=== PATIENT | female | born 1965 | race Hispanic/Latino ===

== ENCOUNTER 2017-05-18 12:41 | Observation (INO) | payer OTHER ==
[2017-05-18 13:36] LABS: #Lymphocytes 1.6 thou/uL (1.20-3.40); #Monocytes 0.4 thou/uL (0.11-0.59); #Neutrophils 3.8 thou/uL (1.40-6.50); %Basophils 0.7 % (0.0-1.0); %Eosinophils 0.5 % (0.0-10.0); %Lymphocytes 27.2 % (21.0-51.0); %Monocytes 6.3 % (0.0-10.0); %Neutrophils 65.3 % (42.0-75.0); Mean Corpuscular HGB CONC 34.2 g/dL (32.0-36.0); Mean Corpuscular Volume 84.9 fl (81.0-99.0); Mean Platelet Volume 8.7 fL (7.4-10.4); Platelet Count 275 thou/uL (130-400); RBC Distribution Width 12.1 % (11.5-14.5); Red Blood Cell (RBC) Count 4.48 mill/uL (4.20-5.40); White Blood Cell (WBC) Count 5.9 thou/uL (4.8-10.8)
[2017-05-18] MEDS ORDERED: Ondansetron HCl/PF 4 MG/2 ML Vial ONE (13:44)
[2017-05-18] MEDS ORDERED: Meclizine HCl 25 MG TAB ONE (13:44)
[2017-05-18 13:48] LABS: Anion Gap 14 mmol/L (10-20); BUN (Urea Nitrogen) 10 mg/dL (7.0-18.7); Calc. Creatinine Clearance 0 mL/min (70-130); Calcium 9.4 mg/dL (7.8-10.44); Carbon Dioxide 25 mmol/L (22-29); Chloride 106 mmol/L (98-107); Estimated GFR-MDRD Greater than 90; Glucose 115 mg/dL (70-105); Potassium 3.6 mmol/L (3.5-5.1); Sodium 141 mmol/L (136-145)
[2017-05-18 13:52] LABS: CKMB 0.8 ng/mL (0-6.6); Troponin I Less than 0.010 ng/mL (< 0.028)
--- NOTE | 2017-05-18 14:18 | RAD ---
PORTABLE CHEST 1 VIEW: Date: 05/18/17 Time: 1349 hours HISTORY: Headache. Dizziness. FINDINGS: The heart size is normal. The lungs are expanded without focal areas of consolidation, pneumothorax, or pleural effusions. IMPRESSION: No radiographic evidence of acute cardiopulmonary process. POS: OFF
[2017-05-18] MEDS ORDERED: Lorazepam 2 MG/ML VIAL ONE (14:51)
--- NOTE | 2017-05-18 15:36 | CT ---
CT HEAD WITHOUT CONTRAST: Technique: Multiple axial tomograms were obtained through the head without IV enhancement. History: Headache. Dizziness. FINDINGS: Ventricles have normal size and position. No mass, infract, or hemorrhage seen. Sinuses and mastoids are aerated. IMPRESSION: No evidence of acute process. POS: [facility]
[2017-05-18 15:41] LABS: Bilirubin Negative (Negative); Blood, Urine Negative (Negative); Clarity Clear (Clear); Glucose, Urine (Dipstick) Negative (Negative); Leukocyte Negative (Negative); Nitrite Negative (Negative); Protein, Urine (Dipstick) 30 mg/dL (Neg-Trace); Specific Gravity, Urine 1.015 (1.005-1.030); Urobilinogen 0.2 mg/dL (0.2-1.0); pH, Urine 7.5 (5.0-9.0)
[2017-05-18 15:42] LABS: Bacteria/HPF Rare-Few HPF (None Seen); RBC/HPF None Seen HPF (0-3); WBC/HPF None Seen HPF (0-3)
[2017-05-18] MEDS ORDERED: Aspirin 325 MG TAB ONE (18:19)
[2017-05-18] MEDS ORDERED: Ondansetron ODT 4 MG TAB SL PRN (19:52)
[2017-05-18] MEDS ORDERED: Acetaminophen 325 MG TAB PO PRN ×2 (19:52→22:15)
[2017-05-18] MEDS ORDERED: Ondansetron HCl/PF 4 MG/2 ML Vial IVP PRN ×2 (19:52→22:15)
[2017-05-18] MEDS ORDERED: Ondansetron ODT 4 MG TAB PO PRN (22:15)
[2017-05-18] MEDS ORDERED: hydrALAZINE 20 MG/ML VIAL SLOW IVP PRN (22:15)
--- NOTE | 2017-05-18 22:28 | PDOC.FPRHP ---
- History of Present Illness Chief Complaint: dizziness, nausea, vomiting, headache History of Present Illness: 51 yo F with PMH of dyslipidemia and trigeminal neuralgia presents with 4 day h/ o headache, dizziness, nausea and vomiting which started when the pt woke up in the morning on Thursday. She reports the symptoms began to subside, but later increased on Thursday and they eventually decided to go to the clinic on Thursday. After she presented to the clinic she was later transferred to the ER for concern of post circ stroke. She denies associated cp, palpitations, sob, diarrhea constipation, abd pain, fever, chills, sweats. Neither her nor family members reports any slurred speech or focal neurological deficit. Additionally, pt denies dysphagia and dysarthria. She does report difficulty ambulating and feeling weak during the same time period. In the ED the initial brain ct was negative and lab results were wnl. and EKG showed NSR. ED Course: aspirin ativan meclizine zofran - Allergies/Adverse Reactions Allergies Allergy/AdvReac Type Severity Reaction Status Date / Time No Known Drug Allergies Allergy Verified 05/18/17 22:11 - Home Medications Medication Instructions Recorded Confirmed Type Acetaminophen [Tylenol Arthritis] 650 mg PO 05/18/17 History - History PMHx: Dyslipidemia, trigeminal neuralgia PSHx: cholecystectomy, , lipoma removal FHx: Maternal HTN Social: Non-smoker, non-drinker, denies drugs - Review of Systems General: denies: fever/chills, weight/appetite/sleep changes, fatigue Eyes: reports: other (dizziness). denies: eye pain, vision changes ENT: denies: nasal congestion, rhinorrhea Respiratory: denies: cough, congestion, shortness of breath Cardiovascular: denies: chest pain, palpitation Gastrointestinal: reports: nausea, vomiting. denies: diarrhea, constipation, abdominal pain Genitourinary: denies: dysuria, polyuria Skin: denies: rashes, lesions Musculoskeletal: denies: tenderness, swelling, arthritis/arthralgias Neurological: reports: weakness, other (headache, dizziness). denies: numbness , syncope - Vital signs BP: 110/60 HR: 82 RR: 19 Tmax: 98.6 Pox: 98% on RA Wt: 75Kg - Physical Exam Constitutional: NAD, awake, alert and oriented, other (Laying comfortably in bed , minimal head movement) HEENT: normocephalic and atraumatic, PERRLA, EOMI, conjunctiva clear, grossly normal vision, grossly normal hearing Neck: supple, FROM, no LAD, no JVD Heart: RRR, normal S1/S2, no murmurs/rubs/gallops, pulses present Lungs: CTAB, no respiratory distress, good air movement, no wheezing Abdomen: soft, non-tender, bowel sounds present, no masses/distention Musculoskeletal: normal structure, normal tone Neurological: no focal deficit, CN II-XII intact, normal sensation, other (Head impulse: Negative Nystagmus: Unidirectional, horizontal Test of Skew: Negative) Skin: no rash/lesions, good turgor, capillary refill <2 seconds Heme/Lymphatic: no unusual bruising or bleeding, no petechia Psychiatric: normal mood and affect FMR H&P: Results - Labs Result Diagrams: 05/18/17 13:30 05/18/17 13:30 Lab results: WBC 5.9 thou/uL (4.8-10.8) 05/18/17 13:30 Hgb 13.0 g/dL (12.0-16.0) 05/18/17 13:30 Hct 38.0 % (36.0-47.0) 05/18/17 13:30 MCV 84.9 fl (81.0-99.0) 05/18/17 13:30 Plt Count 275 thou/uL (130-400) 05/18/17 13:30 Neutrophils % 65.3 % (42.0-75.0) 05/18/17 13:30 Sodium 141 mmol/L (136-145) 05/18/17 13:30 Potassium 3.6 mmol/L (3.5-5.1) 05/18/17 13:30 Chloride 106 mmol/L (98-107) 05/18/17 13:30 Carbon Dioxide 25 mmol/L (22-29) 05/18/17 13:30 BUN 10 mg/dL (7.0-18.7) 05/18/17 13:30 Creatinine 0.64 mg/dL (0.6-1.1) 05/18/17 13:30 Glucose 115 mg/dL (70-105) H 03/05/18 13:30 Calcium 9.4 mg/dL (7.8-10.44) 05/18/17 13:30 CK-MB (CK-2) 0.8 ng/mL (0-6.6) 05/18/17 13:30 Urine Ketones Negative mg/dL (Negative) 05/18/17 14:44 Urine Blood Negative (Negative) 05/18/17 14:44 Urine Nitrite Negative (Negative) 05/18/17 14:44 Ur Leukocyte Esterase Negative (Negative) 05/18/17 14:44 Urine RBC None Seen HPF (0-3) 05/18/17 14:44 Urine WBC None Seen HPF (0-3) 05/18/17 14:44 Ur Squamous Epith Cells 4-6 HPF (0-3) H 05/18/17 14:44 Urine Bacteria Rare-Few HPF (None Seen) 05/18/17 14:44 - EKG Interpretation EKG: NSR rate 61. - Radiology Interpretation Chest x-ray Status: report reviewed by me (SYD) CT scan - head Status: report reviewed by me (SYD) FMR H&P: A/P - Problem List (1) Cerebellar stroke syndrome Current Visit: No Status: Suspected Code(s): G46.4 - CEREBELLAR STROKE SYNDROME (2) Dyslipidemia Current Visit: No Status: Acute Code(s): E78.5 - HYPERLIPIDEMIA, UNSPECIFIED - Plan 1) Cerebellar stroke syndrome, suspected - admit stroke OBS - Pts exam unequivocal, but given positive findings on head impulse, lack of tinnitus or localizing peripheral findings there is concern for posterior circ stroke vs peripheral vertigo vs complex migraine - Will order MRI w & w/o for am, f/u accordingly - am FLP - aspirin 81mg daily - statin 40mg qhs - NS @ 100mls/hr - Negative head impulse, horizontal unidirectional nystagmus and negative test of skew - No other cerebellar findings. Normal heel to gillespie and rapid alternating movements. - Symptom control with zofran prn 2) Dyslipidemia: per outside records, not currently on statin - will check am FLP and start on high intensity statin qhs Disposition/LOS: stable. </= 2 days. Symptomatic meds will be provided. FMR H&P: Upper Level - Pertinent history 51yo HF with PMHx of LT trigeminal neuralgia and dyslipidemia who was transferred from [facility] ED for persistent dizziness. Reports dizziness started on Thursday and progressively worsened over the weekend. Describes it as the room spinning and worsened with moving her head, sitting up and essentially any type of movement. Tried to make an appt with PCP on Thursday but there was no availabilities so she presented to ED. Associated with nausea and vomiting as well that has worsened since Thursday. Endorses BL temporal BARRERA last night, but resolved with Tylenol. Denies any balance difficulty, ataxia, fevers, diarrhea. In the ED, patient was given ASA, meclizine 25mg PO, 2L NS bolus, Ativan 1mg, Zofran 4mg iv - Pertinent findings Gen: NAD HEENT: PERRLA Heart: S1 S2, RRR Lungs: CTAB Abd: soft, nt/nd/bs+ Neuro: CN2-12 intact; normal FTNF, 5/5 BL UE strength, 5/5 BL LE strength, (-) head impulse, (+) horizontal nystagmus, (-) test of skew - Plan Date/Time: 05/18/172224 IAngelic, have evaluated this patient and agree with findings/ plan as outlined by agriculture intern resident. Pertinent changes/additions are listed here. 1. Vertigo: likely 2/2 BPPV [address] on obs to stroke. HINTS exam showing (-) head impulse indicative of central vertigo, but horizontal nystagmus and (-) test of skew indicative of peripheral etiology. CT head (-). Obtain MRI in AM. Obtain FLP and TSH. Cont ASA. 2. HLD: hx of HLD but not on any meds. Obtain FLP. 3. LT trigeminal neuralgia: previously on carbamazepine for symptoms, but not currently taking med. 4. 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 Looking over clinic records, referred to neurosurgery but never followed up. 5. PPx: SCDs 6. Diet: HH 7. Code Status: Full
[2017-05-19] MEDS: Sodium Chloride 0.9% 1,000 ML IV SCH ×2 (00:23→07:15)
[2017-05-19 05:05] LABS: Anion Gap 11 mmol/L (10-20); BUN (Urea Nitrogen) 12 mg/dL (7.0-18.7); Calc. Creatinine Clearance 118 mL/min (70-130); Carbon Dioxide 23 mmol/L (22-29); Cardiac Risk 4.8 (Less than 4.5); Chloride 110 mmol/L (98-107); Cholesterol 149 mg/dl (< 200 Desired); Estimated GFR-MDRD Greater than 90; Glucose 119 mg/dL (70-105); HDL Cholesterol 31 mg/dL (>60 Neg Risk); LDL Cholesterol, Calculated 91 mg/dL; Potassium 3.8 mmol/L (3.5-5.1); Sodium 140 mmol/L (136-145); Triglycerides 137 mg/dL (Less than 150)
[2017-05-19 05:24] LABS: #Eosinphils 0.1 thou/uL (0.0-0.7); #Monocytes 0.5 thou/uL (0.11-0.59); #Neutrophils 2.9 thou/uL (1.40-6.50); %Basophils 0.6 % (0.0-1.0); %Eosinophils 1.8 % (0.0-10.0); %Lymphocytes 37.1 % (21.0-51.0); %Monocytes 8.1 % (0.0-10.0); %Neutrophils 52.4 % (42.0-75.0); Hemoglobin 12.2 g/dL (12.0-16.0); Mean Corpuscular HGB CONC 33.2 g/dL (32.0-36.0); Mean Corpuscular Hemoglobin 29.8 pg (27.0-31.0); Mean Corpuscular Volume 89.7 fl (81.0-99.0); Mean Platelet Volume 7.7 fL (7.4-10.4); Platelet Count 243 thou/uL (130-400); RBC Distribution Width 12.6 % (11.5-14.5); Red Blood Cell (RBC) Count 4.09 mill/uL (4.20-5.40); White Blood Cell (WBC) Count 5.5 thou/uL (4.8-10.8)
--- NOTE | 2017-05-19 08:24 | PDOC.FM ---
- Subjective Subjective: This morning patient reports that she is continuing to feels dizzy at times when she walks. She states she is not having headache at the time of my exam but occasionally feels pain starting at the base of the skull wrapping around to the front and feels like pressure. 3/10 at times last night. She states she ate supper without experiencing nausea or vomiting. - Objective Vital Signs & Weight: Vital Signs (12 hours) Temp Pulse Resp BP Pulse Ox 05/19/17 07:15 98.4 F 63 14 97/54 L 97 05/19/17 03:46 98.3 F 85 16 98/58 L 97 Weight Weight 75.841 kg I&O: 05/18/17 05/19/17 05/20/17 06:59 06:59 06:59 Intake Total 558 Balance 558 Result Diagrams: 05/19/17 03:59 05/19/17 03:59 <Jeremiah Hanson - Last Filed: 05/19/17 12:49> - Objective Vital Signs & Weight: Vital Signs (12 hours) Temp Pulse Resp BP BP BP BP 05/19/17 15:30 98.1 F 57 L 16 99/55 L 05/19/17 12:46 97.7 F 65 16 108/62 05/19/17 10:35 94/52 L 96/54 L 103/63 05/19/17 07:15 98.4 F 63 14 97/54 L Pulse Ox 05/19/17 15:30 95 05/19/17 12:46 96 05/19/17 10:35 05/19/17 07:15 97 Weight Admit Weight 75.75 kg Weight 75.841 kg I&O: 05/18/17 05/19/17 05/20/17 06:59 06:59 06:59 Intake Total 558 Balance 558 Result Diagrams: 05/19/17 03:59 05/19/17 03:59 <Zac Red - Last Filed: 05/19/17 16:45> Phys Exam - Physical Examination Constitutional: NAD HEENT: PERRLA, moist MMs Neck: no nodes, full ROM Respiratory: no wheezing, clear to auscultation bilateral Cardiovascular: RRR, no significant murmur Gastrointestinal: soft, non-tender, no distention, positive bowel sounds Musculoskeletal: no edema, pulses present Neurological: non-focal, moves all 4 limbs Lymphatic: no nodes Skin: no rash, normal turgor, cap refill <2 seconds <Jeremiah Hanson - Last Filed: 05/19/17 12:49> Dx/Plan (1) Vertigo Code(s): R42 - DIZZINESS AND GIDDINESS Status: Acute (2) Dyslipidemia Code(s): E78.5 - HYPERLIPIDEMIA, UNSPECIFIED Status: Acute (3) Cerebellar stroke syndrome Code(s): G46.4 - CEREBELLAR STROKE SYNDROME Status: Suspected - Plan Plan: # Vertigo - CT head negative in ED - must r/o CVA, MRI w/ w/o contrast today - Abnormal MRI in 2015 showing abnormal AICA vascular loop, referred to neurosurgery, no record followed-up - BPs on the low side overnight, check orthostatic - HINTS exam enequicoval: (-) head impulse indicative of central vertigo, but horizontal nystagmus and (-) test of skew indicative of peripheral etiology - ASA # HLD - Atorvastin 40 - FLP WNL # Hx of Trigeminal Neuralgia - not currently complaining of these symptoms - not on medications # Code - full #PPx - SCDs <Jeremiah Hanson - Last Filed: 05/19/17 12:49> Attending Addendum - Attending Addendum Date/Time: 05/19/17 3247 I personally evaluated the patient and discussed the management with Dr. Hanson. I agree with the History, Examination, Assessment and Plan documented above with any addition or exceptions noted below. Evlaution for CVA ongoing. <Zac Red - Last Filed: 05/19/17 16:45>
[2017-05-19] MEDS: Famotidine 20 MG TAB PO SCH ×2 (08:54→20:30)
[2017-05-19] MEDS: Aspirin 81 mg Enteric Coated Tablet PO SCH (08:54)
[2017-05-19] MEDS ORDERED: FLU VACC QS2017-18 36 mo. & older 0.5 ML SYRINGE IM ONE (09:00)
[2017-05-19 13:03] VITALS: BMI 31.6
--- NOTE | 2017-05-19 20:03 | MRI ---
MRI OF BRAIN WITH AND WITHOUT CONTRAST: 05/19/17 HISTORY: Vertigo, headache, nausea and vomiting. COMPARISON: CT brain prior day. FINDINGS: Diffusion weighted omaging sequences show no abnormal areas of diffusion restriction. This is confirm ed on the ADC map. On the susceptibility weighted imaging sequence, no abnormal areas of hemorrhage. There does appear to be a AICA vascular loop abutting the left nerve entry zone of cranial nerve V. N o abnormal intra-axial or extra-axial mass-like enhancement. The dural venous sinuses are patent. Mar row signal of the clivus was normal. IMPRESSION: 1. No acute intracranial abnormality. 2. Vascular loop of the left AICA abutting cranial nerve V as seen on the prior examination can be seen with trigeminal neuralgia. POS: [facility]
[2017-05-19] MEDS ORDERED: Atorvastatin Calcium 40 MG TAB PO SCH (21:00)
[2017-05-20] MEDS: Sodium Chloride 0.9% 1,000 ML IV SCH ×2 (05:40→05:41)
[2017-05-20] MEDS ORDERED: carBAMazepine 200 MG TAB PO SCH ×3 (08:47→17:00)
[2017-05-20] MEDS: Famotidine 20 MG TAB PO SCH (09:00)
[2017-05-20] MEDS: Aspirin 81 mg Enteric Coated Tablet PO SCH (09:01)
--- NOTE | 2017-05-20 09:30 | PDOC.FM ---
- Subjective Subjective: This morning the patient states that she is still having dizziness. She denies nausea or vomiting. Tolerating PO intake well. Able to ambulate to the restroom without difficulty. - Objective Vital Signs & Weight: Vital Signs (12 hours) Temp Pulse Resp BP Pulse Ox 05/20/17 07:24 97.6 F 62 16 117/63 97 05/20/17 04:00 97.9 F 63 20 98/55 L 97 Weight Admit Weight 75.75 kg Weight 77.247 kg I&O: 05/19/17 05/20/17 05/21/17 06:59 06:59 06:59 Intake Total 558 1650 Balance 558 1650 Result Diagrams: 05/19/17 03:59 05/19/17 03:59 <Jeremiah Hanson - Last Filed: 05/20/17 09:28> - Objective Vital Signs & Weight: Vital Signs (12 hours) Temp Pulse Resp BP Pulse Ox 05/20/17 11:55 98.2 F 78 16 133/72 97 05/20/17 08:00 97.6 F 62 16 05/20/17 07:24 97.6 F 62 16 117/63 97 Weight Admit Weight 75.75 kg Weight 77.247 kg I&O: 05/19/17 05/20/17 05/21/17 06:59 06:59 06:59 Intake Total 558 1650 Balance 558 1650 Result Diagrams: 05/19/17 03:59 05/19/17 03:59 <Zac Red - Last Filed: 05/20/17 17:11> Phys Exam - Physical Examination Constitutional: NAD HEENT: PERRLA, moist MMs Neck: no nodes, full ROM Respiratory: no wheezing, clear to auscultation bilateral Cardiovascular: RRR, no significant murmur Gastrointestinal: soft, non-tender, no distention, positive bowel sounds Musculoskeletal: no edema, pulses present Neurological: non-focal, moves all 4 limbs yasmin-halpike negative Psychiatric: normal affect, A&O x 3 Skin: no rash, cap refill <2 seconds <Jeremiah Hanson - Last Filed: 05/20/17 09:28> Dx/Plan (1) Vertigo Code(s): R42 - DIZZINESS AND GIDDINESS Status: Acute (2) Dyslipidemia Code(s): E78.5 - HYPERLIPIDEMIA, UNSPECIFIED Status: Acute (3) Cerebellar stroke syndrome Code(s): G46.4 - CEREBELLAR STROKE SYNDROME Status: Suspected - Plan Plan: # Vertigo - CT head negative in ED - MRI r/o stroke, shows same abnormality as below which could contribute to trigeminal neuralgia - Abnormal MRI in 2015 showing abnormal AICA vascular loop - BPs on the low side overnight - orthostatic WNL - HINTS exam enequicoval: (-) head impulse indicative of central vertigo, but horizontal nystagmus and (-) test of skew indicative of peripheral etiology - ASA # HLD - Atorvastin 40 - FLP WNL # Hx of Trigeminal Neuralgia - patient does not remember this diagnosis - will start carbamazepime # Code - full #PPx - SCDs dispo: dc today <Jeremiah Hanson - Last Filed: 05/20/17 09:28> Attending Addendum - Attending Addendum Date/Time: 05/20/17 1711 I personally evaluated the patient and discussed the management with Dr. Hanson. I agree with the History, Examination, Assessment and Plan documented above with any addition or exceptions noted below. Stable for discharge. <Zac Red - Last Filed: 05/20/17 17:11>
[2017-05-20 13:33] VITALS: BP 133/72; TEMP 98.2
--- NOTE | 2017-05-20 20:03 | DIS-2 ---
DATE OF ADMISSION: 05/18/2017 DATE OF DISCHARGE: 05/20/2017 RESIDENT: Jeremiah Hanson M.D. ADMITTING ATTENDING: Luz Maria Lawler M.D. DISCHARGE ATTENDING: Zac Red M.D. CONSULTATIONS: None. PROCEDURE: Brain MRI shows old left AICA vascular loop abutting cranial nerve 5 , which could be associated with trigeminal neuralgia. This is known from 2014. PRIMARY DIAGNOSIS: Trigeminal neuralgia. SECONDARY DIAGNOSES: Vertigo, hyperlipidemia, cerebrovascular accident, rule out. DISCHARGE MEDICATIONS: Carbamazepine 200 mg p.o. b.i.d., rosuvastatin 10 mg daily, and aspirin 81 mg. DISCONTINUED MEDICATIONS: None. HISTORY OF PRESENT ILLNESS AND HOSPITAL COURSE: This is a 51-year-old female with past medical history of dyslipidemia, trigeminal neuralgia presented to the ED with 4-day history of headache, dizziness, nausea, and vomiting which started when the patient woke up on 05/15/2017. She says that the symptoms proceeded through the weekend and she decided to go into the clinic on Thursday. She was transferred to the ED for concern of posterior circulation stroke. In the ED, CT head was found to be negative and she was admitted for stroke rule out. Brain MRI showed the findings as above. The patient's vertigo persisted throughout the hospitalization, but did improve as the hospitalization went on. Brain MRI ruled out CVA or other source needing acute intervention. A [place]-Hallpike maneuver was performed and there was no nystagmus noted. On further discussion with the patient, a shared decision was made to begin the carbamazepine secondary to the history of trigeminal neuralgia and the history including facial pain and follow up closely with PCP for medication adjustment if this does not resolve her vertigo. Differential including Trigeminal Neuralgia, complex migraine, Meniere's disease, and vestibular neuritis. DISPOSITION: Stable. DISCHARGE INSTRUCTIONS: 1. Location: Home. 2. Diet: Regular. 3. Activity: As tolerated. 4. Follow up with PCP, Dr. Dumont in 5 days. LARRY
--- NOTE | 2017-05-23 15:57 | EKG ---
Test Reason : Blood Pressure : / mmHG Vent. Rate : 060 BPM Atrial Rate : 060 BPM P-R Int : 130 ms QRS Dur : 088 ms QT Int : 428 ms P-R-T Axes : 031 020 040 degrees QTc Int : 428 ms Normal sinus rhythm Normal ECG Confirmed by ALYSHA FATIMA, VICKY ([id number]), photographic editor GABRIELE WORLEY ([id number]) on 05/23/2017 3:56:22 PM Referred By: Confirmed By:VICKY ENCARNACION MD
== END 2017-05-20 13:37 | disposition home or self-care (01) ==
LOC: SCSER 12:41 → 2NO 17:25 → INTOOBSV 17:25
PROVIDERS: ADMIT Family Medicine; ATTEND Family Medicine
DX: G50.0 Trigeminal neuralgia (principal); R42 Dizziness and giddiness; E78.5 Hyperlipidemia, unspecified
CPT/HCPCS: 36415; 70450; 70553; 71045; 80048; 80061; 81003; 81015; 82553; 84443; 84484; 85025; 93005; 96360; 96361; 96374; 96375; G0378; J2060; J2405

== ENCOUNTER 2018-03-11 08:00 | Outpatient (CLI) | payer OTHER | END 2018-03-11 08:01 | disposition home or self-care (01) | LOC: BICMAMMO 08:00 | PROVIDERS: ATTEND Student in an Organized Health Care Education/Training Program | DX: Z12.31 Encounter for screening mammogram for malignant neoplasm of breast (principal) | CPT/HCPCS: 77063; 77067 ==

== ENCOUNTER 2019-03-03 10:41 | Outpatient (CLI) | payer OTHER ==
--- NOTE | 2019-03-03 11:09 | MMO ---
Bilateral MAMMO Bilat Screen [facility]. CLINICAL HISTORY: Patient is 53 years old and is seen for screening. The patient has no family history of breast cancer. The patient has no personal history of cancer. VIEWS: The views performed were: bilateral craniocaudal with tomosynthesis and bilateral mediolateral oblique with tomosynthesis. FILMS COMPARED: The present examination has been compared to prior imaging studies performed at 03/11/2018, and at [facility]- on 12/11/2005. This study has been interpreted with the assistance of computer-aided detection. MAMMOGRAM FINDINGS: There are scattered fibroglandular densities. There are no suspicious masses, suspicious calcifications, or new areas of architectural distortion. IMPRESSION: THERE IS NO MAMMOGRAPHIC EVIDENCE OF MALIGNANCY. A ROUTINE FOLLOW-UP MAMMOGRAM IN 1 YEAR IS RECOMMENDED. THE RESULTS OF THIS EXAM WERE SENT TO THE PATIENT. ACR BI-RADS Category 1 - Negative MAMMOGRAPHY NOTE: 1. A negative mammogram report should not delay a biopsy if a dominant of clinically suspicious mass is present. 2. Approximately 10% to 15% of breast cancers are not detected by mammography. 3. Adenosis and dense breasts may obscure an underlying neoplasm. Reported by: MARCO ANTONIO RIVERA MD Electonically Signed: [id number]
== END 2019-03-03 10:42 | disposition home or self-care (01) ==
LOC: BICMAMMO 10:41
PROVIDERS: ATTEND Student in an Organized Health Care Education/Training Program
DX: Z12.31 Encounter for screening mammogram for malignant neoplasm of breast (principal)
CPT/HCPCS: 77063; 77067

== ENCOUNTER 2020-04-03 09:53 | Outpatient (CLI) | payer BC, OTHER ==
--- NOTE | 2020-04-03 10:50 | MMO ---
Bilateral MAMMO Bilat Screen [facility]. CLINICAL HISTORY: Patient is 54 years old and is seen for screening. The patient has no family history of breast cancer. The patient has no personal history of cancer. VIEWS: The views performed were: bilateral craniocaudal with tomosynthesis and bilateral mediolateral oblique with tomosynthesis. FILMS COMPARED: The present examination has been compared to prior imaging studies performed at 06/18/2010, 03/11/2018 and 03/03/2019. This study has been interpreted with the assistance of computer-aided detection. MAMMOGRAM FINDINGS: There are scattered fibroglandular densities. There are no suspicious masses, suspicious calcifications, or new areas of architectural distortion. IMPRESSION: THERE IS NO MAMMOGRAPHIC EVIDENCE OF MALIGNANCY. A ROUTINE FOLLOW-UP MAMMOGRAM IN 1 YEAR IS RECOMMENDED. THE RESULTS OF THIS EXAM WERE SENT TO THE PATIENT. ACR BI-RADS Category 1 - Negative MAMMOGRAPHY NOTE: 1. A negative mammogram report should not delay a biopsy if a dominant of clinically suspicious mass is present. 2. Approximately 10% to 15% of breast cancers are not detected by mammography. 3. Adenosis and dense breasts may obscure an underlying neoplasm. Reported by: MARCO ANTONIO RIVERA MD Electonically Signed: [id number]
== END 2020-04-03 09:54 | disposition home or self-care (01) ==
LOC: BICMAMMO 09:53
PROVIDERS: ATTEND Family Medicine
DX: Z12.31 Encounter for screening mammogram for malignant neoplasm of breast (principal)
CPT/HCPCS: 77063; 77067

== ENCOUNTER 2025-01-06 08:08 | Outpatient (CLI) | payer OTHER | END 2025-01-06 08:09 | disposition home or self-care (01) | LOC: BICMAMMO 08:08 | PROVIDERS: ATTEND Family Medicine | DX: Z12.31 Encounter for screening mammogram for malignant neoplasm of breast (principal) | CPT/HCPCS: 77063; 77067 ==